=== PATIENT | male | born 1950 | race Caucasian/White ===

== ENCOUNTER 2025-06-15 19:33 | Emergency (ER) | payer MEDICARE, OTHER, SELFPAY ==
[2025-06-15] VITALS (7 sets, daily range): BP systolic 129–169; BP diastolic 75–91; PULSE 57–68; RESP 16–18; TEMP 36.5; O2SAT 95–99; BMI 29.9
--- NOTE | 2025-06-15 19:38 | ED_ITS ---
HPI - Extremity Injury (Lower) General Chief Complaint: Wound/Laceration Stated Complaint: mech. fall, L leg lac Time Seen by Provider: 06/15/25 19:38 History of Present Illness HPI Narrative: Patient is a 74-year-old male no significant past medical history presenting with EMS for evaluation of fall//ablation, patient states that he was hiking when he slipped and fell, states that he caught his leg on a log, states that he cut his leg, not up-to-date on tetanus. On exam avulsion/laceration to the left lower extremity no foreign body noted bleeding controlled, patient denies head strike no other injuries this time. Related Data Previous Rx's ?Medication ?Instructions ?Recorded cephalexin 500 mg capsule 500 mg PO Q6H 7 days #28 cap s 06/15/25 Allergies Allergy/AdvReac Type Severity Reaction Status Date / Time No Known Drug Allergies Allergy Verified 06/15/25 19:38 Review of Systems Review of Systems Narrative: General: Denies fever, chills, weight loss HEENT: Denies headache, eye drainage, eye irritation, head trauma, sore throat, voice change Cardiovascular: Denies any chest pain, palpitations, tachycardia Respiratory: Denies any shortness of breath, cough, wheeze, stridor GI/: Denies any abdominal pain, nausea, vomiting, diarrhea, bright red blood per rectum, melanotic stools, urinary frequency, urinary retention, dysuria, hematuria MSK: Denies any joint pain, muscle pains, swelling Skin: Positive laceration of the left lower extremity Neuro: Denies any headache, lightheadedness, dizziness, fainting, weakness Psych: Denies SI/HI Patient History Social History Smoking Status: Never smoker Exam Narrative Exam Narrative: General: Cooperative, well-developed, not in acute distress HEENT: Normocephalic, atraumatic, PERRLA, normal sclera, eyelids normal Neck: Active full range of motion, atraumatic Chest: Normal to inspection, negative crepitus, no overlying erythema ecchymosis Respiratory: Normal respiratory effort, not in acute respiratory distress, clear to auscultation bilaterally negative cough, wheeze, tachypnea, rhonchi, rales Cardiology: Regular rate rhythm negative gallop, murmur, rubs GI/: No tenderness to palpation, soft, non rigid, normal to inspection, exam deferred MSK: Full active range of motion in all 4 extremities, atraumatic, no tenderness to palpation of any bony prominences Skin: Large laceration/avulsion of the anterior left lower leg, no foreign bodies noted neurovascularly intact, bleeding controlled. Neuro: Alert awake oriented x3, moves all 4 extremities spontaneously, cranial nerves intact, able to answer all questions appropriately follows commands appropriately Psych: Cooperative, negative suicidal or homicidal ideations Initial Vital Signs Initial Vital Signs: Vital Signs Pulse Rate 68 06/15/25 19:33 Pulse Oximetry 98 06/15/25 19:33 Procedures Laceration Repair Laceration 1: Time of procedure: 21:17 Site: lower extremity Side (If applicable): left Size (cm): 20 Description: flap and irregular Depth: simple, single layer Local Anesthetic: lidocaine 2% and with epi Amount of anesthesia used (mL): 10 Skin layer closed with: other (Ethilon) Skin layer suture size: 4-0 Number of sutures: 28 Technique: simple, interrupted Course Orders Ordered: ED Orders 06/15/25 19:42 XR tibia fibula LT 2V Stat Discontinued Medications Diphtheria/Tetanus/Acell Pertussis (Tet,Diph,Pertuss(Acell),Vac/Pf 0.5 Ml Syringe) 0.5 ml IM .ONCE ONE Stop: 06/15/25 19:45 Last Admin: 06/15/25 20:36 Dose: 0.5 ml Documented By: Evan Vital Signs Vital signs: Vital Signs - 8 hr 06/15/25 19:33 06/15/25 19:36 06/15/25 19:36 Temperature Pulse Rate 68 62 Respiratory Rate Blood Pressure 169/75 H Pulse Oximetry 98 98 Oxygen Delivery Method 06/15/25 19:38 06/15/25 20:00 06/15/25 20:00 Temperature 97.7 F Pulse Rate 57 L 63 Respiratory Rate 18 Blood Pressure 169/75 H 141/84 H Pulse Oximetry 98 95 Oxygen Delivery Method Room Air 06/15/25 20:30 06/15/25 20:31 06/15/25 20:31 Temperature Pulse Rate 60 60 Respiratory Rate 16 Blood Pressure 129/91 H Pulse Oximetry 98 99 Oxygen Delivery Method Room Air MDM - Extremity Injury (Lower) Differential Diagnosis Differential diagnosis: Likely other (Open fracture, laceration, avulsion, abrasion) Imaging Data Extremity x-ray #1: Radiologist's Impression: [address] [address] XRay Report Signed Patient: Bony Baeza MR#: [id number] : 1950 Acct:[id number] Age/Sex: 74 / M Date of Service: 06/15/25 Loc: ED Accession Number: [id number] Procedure: XR tibia fibula LT 2V Ordering Provider: Jag Sosa D.O. PROCEDURE: XR TIBIA FIBULA LT 2V INDICATIONS: laceration TECHNIQUE: 2 views of the tibia and fibula were acquired. COMPARISON: None. FINDINGS: Bones: No acute fractures or dislocations. Mild chronic healed fracture deformity suspected at the distal fibula. No suspicious bony lesions. Soft tissues: Skin irregularity at the medial aspect of the lower leg with foci of soft tissue gas and surrounding soft tissue edema. No radiopaque foreign body is seen. Chondrocalcinosis is noted in the knee. IMPRESSION: Soft tissue laceration at the medial lower leg with associated foci of subcutaneous gas and surrounding edema. No acute osseous abnormality. No radiopaque foreign body identified. MDM Narrative Medical decision making narrative: Patient is a 74 year old male who presents for laceration after mechanical trip and fall, he presents from the [facility] via EMS states that he was walking and slipped caught his leg on a log and states that he cut his left lower extremity. On exam he has a very large laceration/avulsion of the left lower anterior leg, no foreign bodies were noted, he is neurovascularly intact, patient had x-rays did not show any foreign body or bony involvement, patient's laceration was repaired 28 sutures, patient was started prophylactically on antibiotics, also had tetanus updated, on exam lower extremities neurovascularly intact, he was given strict return precautions verbalized understanding of this and agrees to being discharged home with the patient follow up Discharge Plan Departure Patient Disposition: Home Clinical Impression: Laceration Instructions: DI for Laceration Repair Activity Restrictions/Additional Instructions: Please follow up with your primary care doctor You have 28 sutures that need to be removed in approximately 1 week Please read the discharge instructions sheet carefully and bring all papers to all doctor follow-up visits, as it may contain information that your doctor may want to see. Disease processes change and evolve, if your symptoms worsen or if you develop any new symptoms that are concerning to you please return for evaluation. Your evaluation today does not show any evidence of any life- threatening/serious illnesses requiring admission to the hospital or surgery. Please follow-up with your doctor for re-evaluation in approximately 1 day. Seek immediate medical attention for any worrisome symptoms. *If you do not have a primary care provider please contact the [facility] Resource line at [phone]. They will ask some questions about your medical history and help get you set up with a doctor in the community. Prescriptions: New cephalexin 500 mg capsule 500 mg PO Q6H 7 Days Qty: 28 0RF Stand Alone Forms: Patient Portal/API
--- NOTE | 2025-06-15 19:42 | DI.RAD.S_ITS ---
PROCEDURE: XR TIBIA FIBULA LT 2V INDICATIONS: laceration TECHNIQUE: 2 views of the tibia and fibula were acquired. COMPARISON: None. FINDINGS: Bones: No acute fractures or dislocations. Mild chronic healed fracture deformity suspected at the distal fibula. No suspicious bony lesions. Soft tissues: Skin irregularity at the medial aspect of the lower leg with foci of soft tissue gas and surrounding soft tissue edema. No radiopaque foreign body is seen. Chondrocalcinosis is noted in the knee. IMPRESSION: Soft tissue laceration at the medial lower leg with associated foci of subcutaneous gas and surrounding edema. No acute osseous abnormality. No radiopaque foreign body identified. Approved by: Elver Roy M.D. on 06/15/2025 at 20:00
[2025-06-15] MEDS: TET,DIPH,PERTUSS(ACELL),VAC/PF 0.5 ML SYRINGE IM (20:36)
--- NOTE | 2025-06-15 21:10 | PC.NURSE ---
Pt received 28 stitches to L anterior lower leg. Wound cleansing and dressing performed by provider. Pt tolerated procedure well.
== END 2025-06-15 21:36 | disposition home or self-care (01) ==
PROVIDERS: Emergency Provider Student in an Organized Health Care Education/Training Program; PCP Internal Medicine
DX: S81.812A Laceration without foreign body, left lower leg, initial encounter (principal); W01.0XXA Fall on same level from slipping, tripping and stumbling without subsequent striking against object, initial encounter; Z23 Encounter for immunization
CPT/HCPCS: 12005; 73590; 90471; 99283; 90715